=== PATIENT | male | born 1995 | race Caucasian/White ===

== ENCOUNTER 2023-07-29 08:26 | Emergency (ER) | payer OTHER ==
[~2023-07-29] VITALS: Ht 170.2 cm; Wt 102.2 kg
[2023-07-29 09:13] VITALS: BP 141/77
--- OUTSIDE RECORDS SUMMARY | 2023-07-29 09:38 | XMS ---
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 [facility] VISIT COUNT (12 MO.) [address] TOTAL 3 NOTE: Visits indicate total known visits. ED/UCC VISIT TRACKING (12 MO.) 07/29/2023 08:28 [facility] [place] TYPE: Emergency COMPLAINT: - R EYE INJURY 07/24/2023 03:41 [employer] [employer] [email or web address] [place] TYPE: Emergency COMPLAINT: - R Eye Pain DIAGNOSES: - R Eye Pain 02/08/2023 05:19 [facility] [employer] [place] TYPE: Emergency DIAGNOSES: - Diarrhea, unspecified - Upper abdominal pain, unspecified - Vomiting, unspecified - food poisoning INPATIENT VISIT TRACKING (12 MO.) No inpatient visits to display in this time frame [email or web address]
== END 2023-07-29 09:16 | disposition home or self-care (01) ==
LOC: ED 08:26
DX: H57.11 Ocular pain, right eye (principal); Z88.0 Allergy status to penicillin
CPT/HCPCS: 99283